=== PATIENT | female | born 1950 | race Caucasian/White ===

== ENCOUNTER 2020-09-18 21:22 | Emergency (ER) | payer MEDICARE, OTHER ==
--- NOTE | 2020-09-18 22:20 | EDM.PDOC ---
ED HPI GENERAL MEDICAL PROBLEM - General Chief Complaint: Genitourinary Problem Stated Complaint: URINARY TRACT INFECTION Time Seen by Provider: 09/18/20 21:50 Source of Information: Reports: Patient History Limitations: Reports: No Limitations - History of Present Illness INITIAL COMMENTS - FREE TEXT/NARRATIVE: patient presented to the ER with a c/o dysuria since the morning. ALso c/o suprapubic discomfort and urgency. no fever or nausea. no flanks pain. no abd pain. h/o liver Tx > 20yrs ago. good appetite. 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 - Past Surgical History Other Female Surgeries/Procedures: liver transplant Social & Family History - Family History Family Medical History: No Pertinent Family History - Tobacco Use Tobacco Use Status *Q: Former Tobacco User Used Tobacco, but Quit: Yes Month/Year Tobacco Last Used: 2000 - Caffeine Use Caffeine Use: Reports: None - Recreational Drug Use Recreational Drug Use: No ED ROS GENERAL - Review of Systems Review Of Systems: See Below Constitutional: Reports: No Symptoms HEENT: Reports: No Symptoms Respiratory: Reports: No Symptoms Cardiovascular: Reports: No Symptoms GI/Abdominal: Reports: No Symptoms : Reports: Dysuria, Frequency, Urgency. Denies: Flank Pain Musculoskeletal: Reports: No Symptoms Skin: Reports: No Symptoms Neurological: Reports: No Symptoms ED EXAM, RENAL/ - Physical Exam Exam: See Below Exam Limited By: No Limitations General Appearance: Alert, WD/WN, No Apparent Distress Eye Exam: Bilateral Eye: EOMI Respiratory/Chest: No Respiratory Distress Cardiovascular: Normal Peripheral Pulses GI/Abdominal: Normal Bowel Sounds, Soft, Non-Tender Back Exam: Normal Inspection, Full Range of Motion. No: CVA Tenderness (R), CVA Tenderness (L) Extremities: Normal Inspection, Normal Range of Motion Neurological: Alert, No Motor/Sensory Deficits Course - Vital Signs Last Recorded V/S: Last Vital Signs Temp 36.7 C 09/18/20 21:42 Pulse 86 09/18/20 21:42 Resp 18 09/18/20 21:42 BP 177/92 H 09/18/20 21:42 Pulse Ox 98 09/18/20 21:42 - Orders/Labs/Meds Labs: Laboratory Tests 09/18/20 Range/Units 21:46 Urine Color Yellow Urine Appearance Cloudy (CLEAR) Urine pH 7.0 (5.0-8.0) Ur Specific [place] 1.025 (1.003-1.030) Urine Protein Negative (NEGATIVE) mg/dL Urine Glucose (UA) Negative (NEGATIVE) mg/dL Urine Ketones Negative (NEGATIVE) mg/dL Urine Occult Blood Moderate H (NEGATIVE) Urine Nitrite Negative (NEGATIVE) Urine Bilirubin Negative (NEGATIVE) Urine Urobilinogen 0.2 (0.2-1.0) E.U./dL Ur Leukocyte Esterase Small H (NEGATIVE) U Hyaline Cast (Auto) Few /HPF Urine RBC 20-30 H /HPF Urine WBC 20-30 H /HPF Urine WBC Clumps Moderate /HPF Ur Squamous Epith Cells Moderate /HPF Urine Bacteria Moderate H /HPF - Re-Assessments/Exams Free Text/Narrative Re-Assessment/Exam: 09/18/20 22:17 UA ++ WBC, and LEs 09/18/20 22:19 patient reports that her CrCl is around 30 - for this reason - will prescribed her Bactrim DS once daily x 3 days given her low kidney function.. Departure - Departure Time of Disposition: 22:20 Disposition: Home, Self-Care 01 Condition: Good Clinical Impression: UTI, Urinary tract infectious disease - Discharge Information *PRESCRIPTION DRUG MONITORING PROGRAM REVIEWED*: Not Applicable *COPY OF PRESCRIPTION DRUG MONITORING REPORT IN PATIENT MICHELLE: Not Applicable Instructions: Urinary Tract Infection, Adult, [id number] Forms: ED Department Discharge Additional Instructions: - increase fluids intake to help flush your kidneys - take antibiotics as prescribed - one tab once daily for 3 days - follow up with your PCP next week as needed - return to the ER if symptoms got worse or any concerns Sepsis Event Note (ED) - Evaluation Sepsis Screening Result: No Definite Risk - Focused Exam Vital Signs: Vital Signs Temp Pulse Resp BP Pulse Ox 09/18/20 21:42 36.7 C 86 18 177/92 H 98 09/18/20 21:22 36.7 C 86 18 177/92 H 98 - Problem List & Annotations (1) UTI, Urinary tract infectious disease SNOMED Code(s): 30378049 Code(s): N39.0 - URINARY TRACT INFECTION, SITE NOT SPECIFIED Status: Acute Priority: Low - Problem List Review Problem List Initiated/Reviewed/Updated: Yes - Assessment/Plan Plan: - increase fluids intake to help flush your kidneys - take antibiotics as prescribed - follow up with your PCP next week as needed - return to the ER if symptoms got worse or any concerns
[2020-09-18] MEDS ORDERED: Sulfamethoxazole/Trimethoprim 800-160 MG Tab ONE (22:30)
== END 2020-09-18 22:32 | disposition home or self-care (01) ==
LOC: LB.ED 21:22
DX: N39.0 Urinary tract infection, site not specified (principal); Z87.891 Personal history of nicotine dependence
CPT/HCPCS: 81001; 99284; A9270-GY